=== PATIENT | female | born 1980 | race Caucasian/White ===

== ENCOUNTER 2016-06-12 03:30 | Inpatient (IN) | payer OTHER ==
[~2016-06-12] VITALS: Ht 160 cm; Wt 88.5 kg
[~2016-06-12 03:30] MED LIST: ADALKIT SQ; LEVO125T7 PO; LIALDA PO; MTR600X PO; PRENTAB26 PO
[2016-06-20] MEDS ORDERED: DINOPROSTONE 10 MG INSERT PV ONE (18:55)
[2016-06-20] MEDS ORDERED: LACTATED RINGER'S 1000ML 1,000 ML IV PRN (19:00)
--- NOTE | 2016-06-20 19:08 | Progress Note ---
Progress Note 35 F P2002 at 41.1 weeks admitted for induction of labor for post-dates. Her GBS is negative. Cervix finger-tip/50/-3/vertex. FHT Cat 1. Cervidil 10 mg placed vaginally for cervical ripening.
[2016-06-20 19:10] LABS: HEMATOCRIT 37.6 % (37-47); MEAN CELL VOLUME 93.1 fL (80-100); MEAN CORPUSCULAR HEMOGLOBIN 32.7 pg (25-34); MEAN CORPUSCULAR HGB CONC 35.1 g/dl (32-36); MEAN PLATELET VOLUME 11.8 fL (7.4-10.4); PLATELET COUNT 163 K/uL (130-400); RED BLOOD COUNT 4.04 M/uL (4.2-5.4)
[2016-06-20 20:44] VITALS: Ht 160 cm; Wt 88.5 kg
[2016-06-20] MEDS: MESALAMINE 1.2 GM PO SCH (22:00)
[2016-06-21] MEDS ORDERED: LACTATED RINGER'S 1000ML 500 ML IV PRN ×2 (08:13→11:42)
[2016-06-21] MEDS ORDERED: OXYTOCIN 30 UNITS/500ML NSS IV PRN ×2 (08:15→17:30)
[2016-06-21] MEDS: LACTATED RINGER'S 1000ML 1,000 ML IV SCH ×2 (09:02→14:43)
[2016-06-21] MEDS ORDERED: BUPIVACAINE 0.25% 30 ML VIAL ONE (09:54)
[2016-06-21] MEDS ORDERED: EpHEDrine SULFATE INJ 50 MG/ML AMP ONE (09:54)
[2016-06-21] MEDS ORDERED: FENTANYL 2MCG/ML ROPIV 1.25MG/ML 100ML BAG EPI ONE (09:55)
[2016-06-21] MEDS ORDERED: FENTANYL CITRATE INJ 50 MCG/1 ML 2 ML VIAL ONE (09:57)
[2016-06-21] MEDS: LEVOTHYROXINE 125 MCG TAB PO SCH (10:08)
[2016-06-21] MEDS ORDERED: NALOXONE HCL INJ 1 MG in SODIUM CHLORIDE 0.9% 1000ML 1,000 ML IV PRN (11:42)
[2016-06-21] MEDS ORDERED: NALBUPHINE HCL INJ 10 MG/ML AMP IV PRN (11:45)
[2016-06-21] MEDS ORDERED: FENTANYL 2MCG/ML ROPIV 1.25MG/ML 100ML BAG EPI PRN (11:45)
[2016-06-21] MEDS ORDERED: DiphenhydrAMINE HCL 50 MG/ML VIAL IV PRN (11:45)
[2016-06-21] MEDS ORDERED: NALOXONE HCL INJ 0.4 MG/1 ML VIAL/CARP IV PRN (11:45)
[2016-06-21] MEDS ORDERED: EpHEDrine SULFATE INJ 50 MG/ML AMP IV PRN (11:45)
[2016-06-21] MEDS ORDERED: OXYCODONE/ACETAMINOPHEN 5-325 TAB PO PRN (17:30)
[2016-06-21] MEDS ORDERED: SUPERCREAM 0.870 % 15GM JAR EXT PRN (17:30)
[2016-06-21] MEDS ORDERED: BENZOCAINE 20% AER SPR 82.5 GM CAN EXT PRN (17:30)
[2016-06-21] MEDS ORDERED: ACETAMINOPHEN 325 MG TAB PO PRN (17:30)
[2016-06-21] MEDS ORDERED: DIPHTHERIA/TETANUS/PERTUSSIS 0.5 ML SYR/VIAL IM. ONE (17:30)
[2016-06-21] MEDS ORDERED: ACETAMINOPHEN/CODEINE 300/30MG TAB PO PRN (17:30)
[2016-06-21] MEDS ORDERED: HYDROCORTISONE ACETATE 25 MG SUPP PR PRN (17:30)
[2016-06-21] MEDS ORDERED: LANOLIN OINT EXT PRN ×2 (17:30)
--- NOTE | 2016-06-21 18:08 | Anesthesia Procedure Note ---
Anesthesia Epidural Removal Nt Date & Time Jun 21, 2016 at 18:07 Vital Signs Pain Intensity: 0.0 Notes Mental Status: alert / awake / arousable, participated in evaluation Nausea / Vomiting: adequately controlled Pain: adequately controlled Airway Patency, RR, SpO2: stable & adequate BP & HR: stable & adequate Hydration State: stable & adequate Neuraxial Anesthesia: was administered Anesthetic Complications: no major complications apparent, pt satisfied with anesthetic care Epidural: removed without complications, with tip intact
--- NOTE | 2016-06-21 18:50 | DELIVERY SUMMARY ---
DATE OF OPERATION: 06/21/2016 TIME OF DELIVERY: 1704 DELIVERY OF PLACENTA: 1706 DELIVERY NOTE: The patient is a 35-year-old 3 para 2 at 41 weeks and 2 days gestation, who was admitted to labor and delivery on the evening of 06/20/2016, for a scheduled induction of labor secondary to postdates. She received Cervidil on admission. On the morning 06/21/2016, oxytocin per protocol was begun. She received an epidural for anesthesia. Spontaneous rupture of membranes occurred at 1525 with clear amniotic fluid noted. She reached complete dilation at 1636. She pushed to delivery at 1704. She delivered a viable male in the occiput posterior position to a midline episiotomy at 1704. The baby was placed on patient's abdomen. Cord was clamped x2 and cut. Apgars were 9 at 1 minute and 9 at 5 minutes. Please see nursing notes for further baby assessment. Cord blood was then obtained and an intact placenta with 3-vessel cord was delivered at 1706. Oxytocin infusion was then begun. The lower uterine segment and vagina were cleared of any blood clot and debris. Exploration of the perineum noted a midline episiotomy which was repaired with 2-0 and 3-0 Vicryl suture in layers. Excellent hemostasis was noted. Excellent sphincter tone was also noted. No other lacerations were seen. Four sharps removed from the operative field. All sponge and instrument counts were found to be correct x2. Estimated blood loss was 300 mL. Both patient and baby tolerated the delivery well and were sent to recovery with stable vital signs. I attest to the content of the Intraoperative Record and any orders documented therein. Any exceptio ns are noted below.
[2016-06-21] MEDS: IBUPROFEN 600 MG TAB PO PRN (19:17)
[2016-06-21 19:55] VITALS: BP 132/84; PULSE 89; TEMP 36.5
[2016-06-21] MEDS: DOCUSATE SODIUM 100 MG CAP PO SCH (20:33)
[2016-06-21] MEDS ORDERED: MESALAMINE PO SCH (22:00)
[2016-06-21] MEDS: MESALAMINE 1.2 GM PO SCH (22:00)
[2016-06-21] MEDS ORDERED: LIALDA 1.2 GM PO SCH (22:00)
[2016-06-21] MEDS ORDERED: MESALAMINE 1.2 GM PO SCH (22:00)
[2016-06-21 23:00] VITALS: BP 122/84; PULSE 94; TEMP 36.6
[2016-06-22] MEDS: IBUPROFEN 600 MG TAB PO PRN ×4 (03:05→23:06)
[2016-06-22 03:40] VITALS: BP 129/85; PULSE 77; TEMP 36.6
[2016-06-22 06:20] LABS: HEMATOCRIT 38.4 % (37-47)
--- NOTE | 2016-06-22 06:54 | OB/GYN Progress Note ---
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 Subjective conversation w/ patient Ambulation: ambulating normally Voiding: no voiding problems Passing Gas: Yes Diet Tolerance: Regular Diet Lochia: Moderate Feeding Type: Breast Feeding Pain: 4/10 Notes: Doing well. Pain well controlled. Ambulating without difficulty. Tolerating regular diet. Lochia moderate Objective Vital Signs Date Time Temp Pulse Resp B/P Pulse Ox O2 Delivery O2 Flow Rate FiO2 06/22/16 03:40 36.6 77 16 129/85 Room Air 06/21/16 23:00 36.6 94 18 122/84 Room Air 06/21/16 23:00 Room Air 06/21/16 19:55 Room Air 06/21/16 19:55 36.5 89 18 132/84 Room Air Physical Exam General Appearance: WELL-APPEARING Respiratory/Chest: chest non-tender, lungs clear Cardiovascular: regular rate, rhythm Abdomen: normal bowel sounds, soft Fundus: Firm Extremities: normal range of motion, non-tender, no calf tenderness Laboratory Results Last 24 Hours Test 06/22/16 05:53 Hemoglobin 13.2 g/dL Hematocrit 38.4 % Assessment and Plan Post- Day Number: 1 Continue Routine Care: -Continue routine care -Anticipate d/c home tomorrow AM
[2016-06-22 07:30] VITALS: BP 122/77; PULSE 78; TEMP 36.5; O2SAT 98
[2016-06-22] MEDS: LEVOTHYROXINE 125 MCG TAB PO SCH ×2 (07:30→07:32)
[2016-06-22] MEDS: ACETAMINOPHEN/CODEINE 300/30MG TAB PO PRN ×3 (07:33→20:25)
[2016-06-22] MEDS: PRENATAL VITAMIN TAB PO SCH (09:13)
[2016-06-22] MEDS: FERROUS SULFATE 325 MG TAB PO SCH (09:13)
[2016-06-22] MEDS: DOCUSATE SODIUM 100 MG CAP PO SCH ×2 (09:14→20:25)
[2016-06-22 11:30] VITALS: BP 124/81; PULSE 88; TEMP 36.4
[2016-06-22 15:30] VITALS: BP 126/81; PULSE 80; TEMP 36.6
[2016-06-22] MEDS ORDERED: BISACODYL 5 MG TABEC PO SCH (20:00)
[2016-06-22] MEDS: MESALAMINE 1.2 GM PO SCH (21:59)
[2016-06-22 23:15] VITALS: BP 124/86; PULSE 99; TEMP 36.5
[2016-06-23] MEDS: ACETAMINOPHEN/CODEINE 300/30MG TAB PO PRN ×2 (01:40→11:18)
[2016-06-23] MEDS: IBUPROFEN 600 MG TAB PO PRN ×2 (05:59→10:12)
[2016-06-23] MEDS ORDERED: BISACODYL 10 MG SUPP PR PRN (07:00)
[2016-06-23 07:09] LABS: HEMATOCRIT 39.8 % (37-47); MEAN CELL VOLUME 94.5 fL (80-100); MEAN CORPUSCULAR HEMOGLOBIN 32.3 pg (25-34); MEAN CORPUSCULAR HGB CONC 34.2 g/dl (32-36); PLATELET COUNT 176 K/uL (130-400); RED BLOOD COUNT 4.21 M/uL (4.2-5.4); WHITE BLOOD COUNT 11.34 K/uL (4.8-10.8)
[2016-06-23 07:30] VITALS: BP 115/80; PULSE 88; TEMP 36.1; O2SAT 97
[2016-06-23] MEDS: LEVOTHYROXINE 125 MCG TAB PO SCH ×2 (07:30)
[2016-06-23] MEDS: DOCUSATE SODIUM 100 MG CAP PO SCH (08:17)
[2016-06-23] MEDS: PRENATAL VITAMIN TAB PO SCH (08:17)
[2016-06-23] MEDS: FERROUS SULFATE 325 MG TAB PO SCH (08:17)
[2016-06-23] MEDS ORDERED: MTR600X PO (10:28)
--- NOTE | 2016-06-23 10:31 | OB/GYN Progress Note ---
[employer] Progress Note Date of Service Jun 23, 2016. Subjective conversation w/ patient, physical exam Ambulation: ambulating normally Voiding: no voiding problems Passing Gas: Yes Diet Tolerance: Regular Diet Lochia: Small Feeding Type: Breast Feeding Objective Vital Signs Date Time Temp Pulse Resp B/P Pulse Ox O2 Delivery O2 Flow Rate FiO2 06/23/16 07:30 97 Room Air 06/23/16 07:30 36.1 88 20 115/80 97 Room Air 06/22/16 23:15 Room Air 06/22/16 23:15 36.5 99 18 124/86 Room Air 06/22/16 15:30 Room Air 06/22/16 15:30 36.6 80 20 126/81 Room Air 06/22/16 11:30 36.4 88 16 124/81 Room Air Physical Exam General Appearance: NO APPARENT DISTRESS Abdomen: non tender, soft Fundus: Firm Extremities: non-tender, no pedal edema Laboratory Results Last 24 Hours Test 06/23/16 06:30 White Blood Count 11.34 K/uL Red Blood Count 4.21 M/uL Hemoglobin 13.6 g/dL Hematocrit 39.8 % Mean Corpuscular Volume 94.5 fL Mean Corpuscular Hemoglobin 32.3 pg Mean Corpuscular Hemoglobin Concent 34.2 g/dl RDW Standard Deviation 46.1 fL RDW Coefficient of Variation 13.4 % Platelet Count 176 K/uL Mean Platelet Volume 12.0 fL Assessment and Plan Post- Day Number: 2 Continue Routine Care: discharged
[2016-06-23 11:30] VITALS: BP_DIAS 80; PULSE 88; TEMP 36.1
== END 2016-06-23 12:09 | disposition home or self-care (01) | DRG 775 ==
LOC: C.LD 06-20 18:45 → C.OBG 06-21 19:51
PROVIDERS: ADMIT Obstetrics & Gynecology; ATTEND Obstetrics & Gynecology
PROC: 0W8NXZZ Division of Female Perineum, External Approach (ICD-10-PCS; principal; 2016-06-21)
PROC: 10E0XZZ Delivery of Products of Conception, External Approach (ICD-10-PCS; principal; 2016-06-21)
PROC: 3E0K7GC Introduction of Other Therapeutic Substance into Genitourinary Tract, Via Natural or Artificial Opening (ICD-10-PCS; 2016-06-21)
DX: O48.0 Post-term pregnancy (principal); O99.284 Endocrine, nutritional and metabolic diseases complicating childbirth; K50.90 Crohn's disease, unspecified, without complications; E03.9 Hypothyroidism, unspecified; O99.613 Diseases of the digestive system complicating pregnancy, third trimester; O09.513 Supervision of elderly primigravida, third trimester; Z3A.41 41 weeks gestation of pregnancy; Z3A.35 35 weeks gestation of pregnancy; Z37.0 Single live birth